=== PATIENT | male | born 1990 | race Asian ===

== ENCOUNTER → 2021-05-25 | Outpatient (CLI) | payer BC ==
--- NOTE | 2021-05-25 08:21 | REP ---
INDICATION: ABNORMAL LFT'S. COMPARISON: None. TECHNIQUE: Right upper quadrant sonography. FINDINGS: Scanning through the right upper quadrant of the abdomen demonstrates a normal sized, thin-walled gallbladder without evidence of stone or polyp. Common bile duct is normal measuring 0.5 cm in greatest diameter. No focal liver lesion is seen. Liver size is normal. There is increased echogenicity in the liver parenchyma diffusely consistent with fatty infiltration. There is some fat sparing near the gallbladder. No pancreatic abnormality is observed. No right renal abnormality is seen. There is no evidence of ascites. The right kidney measures 12.5 x 6.7 x 6.2 cm. IMPRESSION: Evidence of fatty infiltration of the liver. Otherwise negative right upper quadrant sonogram. <Electronically signed by Jaime Peters > 05/25/21 [id number]
== END ==
LOC: M RAD 07:29
DX: R94.5 Abnormal results of liver function studies (principal); R74.8 Abnormal levels of other serum enzymes

== ENCOUNTER → 2021-08-12 | Outpatient (REF) | LOC: M LABSMTC 13:01 | PROVIDERS: ATTEND Family Medicine | DX: Z20.828 Contact with and (suspected) exposure to other viral communicable diseases (principal) ==

== ENCOUNTER → 2021-08-25 | Outpatient (REF) | LOC: M LABSMTC 13:13 | PROVIDERS: ATTEND Family Medicine | DX: Z20.822 Contact with and (suspected) exposure to COVID-19 (principal) ==